=== PATIENT | male | born 1990 | race Caucasian/White ===

== ENCOUNTER 2017-08-11 02:56 | Emergency (ER) | payer SELFPAY ==
[~2017-08-11] VITALS: Ht 172.7 cm; Wt 91.4 kg
[2017-08-11 03:12] VITALS: BP 130/76; PULSE 94; RESP 16; TEMP 97.5; O2SAT 92
--- NOTE | 2017-08-11 04:10 | PD ---
HPI Chief Complaint: Alcohol/Drug Intoxication Time Seen by Provider: 04:07 Travel History International Travel<30 days: No Contact w/Intl Traveler<30days: No Traveled to known affect area: No History of Present Illness HPI 26-year-old male complains of alcohol intoxication tonight. He arrives as a [place] act. He was found drunk in public. He denies drug abuse. He denies the pain. He reports drinking an unknown quantity of whiskey and beer. Location generalized. He reports drinking alcohol for the past 12 hours approximately. Timing constant. PFSH Past Surgical History Tonsillectomy: Yes Social History Alcohol Use: Yes (occassional) Tobacco Use: No Substance Use: No Allergies-Medications (Allergen,Severity, Reaction): Coded Allergies: No Known Allergies (Unverified , 08/11/17) Reported Meds & Prescriptions Reported Meds & Active Scripts Active No Active Prescriptions or Reported Medications Review of Systems Except as stated in HPI: all other systems reviewed are Neg General / Constitutional: No: Fever Physical Exam Narrative GENERAL: 26 male pleasant well-nourished well-developed, EtOH on breath, or cooperative pleasant Vital Signs Date Time Temp Pulse Resp B/P (MAP) Pulse Ox O2 Delivery O2 Flow Rate FiO2 08/11/17 03:12 97.5 94 16 130/76 (94) 92 Room Air SKIN: Warm and dry. HEAD: Atraumatic. Normocephalic. EYES: Pupils equal and round. No scleral icterus. No injection or drainage. ENT: No nasal bleeding or discharge. Mucous membranes pink and moist. NECK: Trachea midline. No JVD. CARDIOVASCULAR: Regular rate and rhythm. RESPIRATORY: No accessory muscle use. Clear to auscultation. Breath sounds equal bilaterally. GASTROINTESTINAL: Abdomen soft, non-tender, nondistended. Hepatic and splenic margins not palpable. MUSCULOSKELETAL: Extremities without clubbing, cyanosis, or edema. No obvious deformities. NEUROLOGICAL: Awake and alert. No obvious cranial nerve deficits. Motor grossly within normal limits. Five out of 5 muscle strength in the arms and legs. Normal speech. PSYCHIATRIC: No suicidal ideation. No homicidal ideation. Data Data Last Documented VS Vital Signs Date Time Temp Pulse Resp B/P (MAP) Pulse Ox O2 Delivery O2 Flow Rate FiO2 08/11/17 03:12 97.5 94 16 130/76 (94) 92 Room Air MDM Medical Decision Making Medical Screen Exam Complete: Yes Emergency Medical Condition: Yes Differential Diagnosis Alcohol intoxication, polysubstance abuse, toxic alcohol ingestion Narrative Course Patient is overall reasonably sober upon arrival here. He spoke in full sentences and was cooperative and erosion at the time of interview. Patient will be observed here for a few hours. When he tolerates oral hydration and is able to ambulate throughout the pod and arrange for transportation home independently he will be discharged. Diagnosis Primary Impression: Alcohol intoxication Qualified Codes: F10.929 - Alcohol use, unspecified with intoxication, unspecified Referrals: Primary Care Physician call for appointment Scripts No Active Prescriptions or Reported Meds Disposition: DISCHARGE HOME Condition: Stable David Chavez MD August 11, 2017 04:10
== END 2017-08-11 07:42 | disposition home or self-care (01) ==
LOC: NEPE 02:56
DX: F10.929 Alcohol use, unspecified with intoxication, unspecified (principal)
CPT/HCPCS: 99281